=== PATIENT | male | born 1960 | race Two or more races ===

== ENCOUNTER 2024-05-14 07:57 | Emergency (ER) | payer OTHER ==
[~2024-05-14] VITALS: Ht 162.6 cm; Wt 56.7 kg
[2024-05-14] MEDS ORDERED: KETOROLAC TROMETHAMINE 60 MG VIAL IM STA (09:19)
[2024-05-14] MEDS ORDERED: DEXAMETHASONE SODIUM PHOSPHATE 4 MG/ML VIAL IM STA (09:19)
[2024-05-14] MEDS ORDERED: ACETAMINOPHEN 500 MG GEL..CAP PO STA (09:20)
== END 2024-05-14 10:33 | disposition home or self-care (01) ==
LOC: ER 07:59
DX: M25.552 Pain in left hip (principal); M25.562 Pain in left knee
CPT/HCPCS: 73502; 73560; 96372; 99283; J1100; J1885

== ENCOUNTER 2024-07-11 07:24 | Outpatient (CLI) | payer OTHER | END 2024-07-11 07:33 | disposition home or self-care (01) | LOC: RAD 07:24 | PROVIDERS: ATTEND General Practice | DX: I70.0 Atherosclerosis of aorta (principal); M25.559 Pain in unspecified hip; M54.17 Radiculopathy, lumbosacral region ==